=== PATIENT | female | born 1995 | race Caucasian/White ===

== ENCOUNTER 2025-02-09 11:27 | Outpatient (CLI) | payer MEDICAID, SELFPAY ==
[2025-02-09 11:46] LABS: HCT 37.7 % (36.0-46.0); HGB 12.4 g/dL (11.2-15.7); MCH 28.5 pg (27.0-33.0); MCHC 32.9 % (32.0-36.0); MCV 87 fL (80-95); MPV 9.0 fL (8.0-11.0); Platelet Count 285 10^3/uL (130-400); RBC 4.35 10^6/uL (3.93-5.22); RDW 13.3 % (11.7-14.6); RDW-SD 42.0 fL; WBC 6.40 10^3/uL (4.4-10.8)
[2025-02-09 12:23] LABS: Hemoglobin A1C 4.9 % (<5.7)
[2025-02-09 12:33] LABS: TSH (W/Ref FT4) 3.05 uIU/mL (0.36-3.74)
== END 2025-02-09 11:28 | disposition home or self-care (01) ==
LOC: LBO 11:27
PROVIDERS: Visit Provider Obstetrics & Gynecology
DX: Z31.9 Encounter for procreative management, unspecified (principal); N97.0 Female infertility associated with anovulation; Z30.09 Encounter for other general counseling and advice on contraception; E66.9 Obesity, unspecified
CPT/HCPCS: 36415; 84403; 85027; 86850; 86900; 86901; 83036; 84144; 84443

== ENCOUNTER 2025-02-19 04:21 | Outpatient (CLI) | payer MEDICAID, SELFPAY ==
--- NOTE | 2025-02-19 07:00 | DI.US_ITS ---
Exam(s) US PELVIS TRANSVAGINAL EXAM: US PELVIS TRANSVAGINAL CLINICAL HISTORY: infertility,z31.69 TECHNIQUE: Ultrasound of the pelvis was performed both transabdominal and transvaginal. COMPARISON: No exams were available for comparison FINDINGS: UTERUS: Nongravid and anteverted Measures 7.4 cm length x 4.1 cm AP x 4.7 cm wide. There are no uterine fibroids. Endometrial thickness measures 13 mm and appears homogeneous There is no fluid in the endometrial canal. CERVIX: There are a few nabothian cysts in the cervix RIGHT OVARY: Measures 2.2 x 1.6 x 2.4 cm. Contains a few small sub cm follicular cysts. No significant large cysts nor masses evident in the right ovary. Exhibits normal blood flow. LEFT OVARY: Measures 3.9 x 2.0 x 2.9 cm. Contains this few small sub cm follicular cysts. No significant large cysts nor masses evident in the left ovary. Exhibits normal blood flow. CUL-DE-SAC: No free fluid evident. IMPRESSION: 1. Normal appearing uterus and age-appropriate endometrium. 2. No abnormal ovarian findings. No extraovarian adnexal masses. 3. No free fluid evident in the adnexal regions and cul-de-sac. DATA REPOSITORY:
== END 2025-02-19 04:41 ==
PROVIDERS: PCP Nurse Practitioner; Visit Provider Obstetrics & Gynecology
DX: Z31.69 Encounter for other general counseling and advice on procreation (principal)
CPT/HCPCS: 76830; 76856

== ENCOUNTER 2025-02-20 04:43 | Outpatient (CLI) | payer MEDICAID, SELFPAY | END 2025-02-20 04:44 | disposition home or self-care (01) | LOC: LBO 04:43 | PROVIDERS: PCP Nurse Practitioner; Visit Provider Obstetrics & Gynecology | DX: N93.9 Abnormal uterine and vaginal bleeding, unspecified (principal) | CPT/HCPCS: 36415; 84144 ==